=== PATIENT | female | born 1985 | race Hispanic/Latino ===

== ENCOUNTER → 2019-06-20 | Outpatient (CLI) | payer OTHER ==
[~2019-06-20] MED LIST: AUGMENTIN PO; PREN1TAB80 PO; VICODIN PO
== END | disposition home or self-care (01) ==
LOC: RAH 07:36
PROVIDERS: ATTEND Internal Medicine Gastroenterology
DX: K80.10 Calculus of gallbladder with chronic cholecystitis without obstruction (principal)
CPT/HCPCS: 76700